=== PATIENT | female | born 2000 | race Caucasian/White ===

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

== ENCOUNTER 2021-03-30 09:40 | Inpatient (IN) | payer MEDICAID ==
[~2021-03-30] VITALS: Ht 157.5 cm; Wt 84.5 kg
[2021-03-30] VITALS (42 sets, daily range): BP systolic 125–195; BP diastolic 63–95; PULSE 54–107; TEMP 97.4–98.4
--- NOTE | 2021-03-30 10:00 | NUR ---
Presents to labor and delivery for induction of labor. Let patient know that we would monitor patientl, but not start induction until around noon time. Patient states understanding.
[2021-03-30 11:28] LABS: BASO # 0.1 K/mm3 (0.0-0.2); BASO % 0.5 % (0.0-2.0); EOS # 0.2 K/mm3 (0.0-0.7); EOS % 2.3 % (0-4.0); GRAN # 6.9 K/mm3 (1.4-6.5); HEMOGLOBIN 12.3 g/dl (12.5-16.0); LYMPH # 1.8 K/mm3 (1.2-3.4); LYMPH % 18.2 % (20.0-51.0); MEAN CELL VOLUME 90 fl (80.0-100.0); MEAN CORPUSCULAR HEMOGLOBIN 30 pg (27.0-31.0); MEAN CORPUSCULAR HGB CONC 34 g/dl (33.0-37.0); MEAN PLATELET VOLUME 10.2 fl (7.4-10.4); MONO # 0.7 K/mm3 (0.1-0.6); MONO % 7.2 % (1.7-9.3); PLATELET COUNT 167 K/mm3 (130-400); RED BLOOD COUNT 4.05 M/mm3 (4.10-5.30); REDCELL DISTRIBUTION WIDTH-CV 12.4 % (11.5-14.5)
[2021-03-30 11:30] LABS: HEMATOCRIT 36.3 % (37.0-47.0)
[2021-03-30 11:44] LABS: ALBUMIN 2.5 gm/dL (3.5-5.0); BILIRUBIN,TOTAL 0.4 mg/dL (0.2-1.2); CALCIUM 8.9 mg/dL (8.4-10.2); CREATININE, serum 0.62 mg/dL (0.57-1.11); POTASSIUM 3.2 mmol/L (3.5-4.5); TOTAL PROTEIN 6.1 gm/dL (6.2-8.1)
--- NOTE | 2021-03-30 14:04 | NUR ---
Pt sitting upright for epidural placement. Difficulty tracing FHR due to maternal position. RN at bedside adjusting monitors. FHR audible.
[2021-03-30 15:00] LABS: PH 7 (5-8); SQUAMOUS EPITHELIAL 0-2 /hpf; URINE APPEARANCE Clear; URINE BACTERIA None Seen /hpf; URINE BILIRUBIN Negative (NEGATIVE); URINE BLOOD Negative (NEGATIVE); URINE COLOR Straw; URINE GLUCOSE Negative (NEGATIVE); URINE KETONE 1+ (NEGATIVE); URINE LEUKOCYTE ESTERASE Negative (NEGATIVE); URINE NITRATE Negative (NEGATIVE); URINE PROTEIN(semi-quant) Negative (NEGATIVE); URINE RBC 0-2 /hpf; URINE UROBILINOGEN Negative (NEGATIVE); URINE WBC 0-2 /hpf
[2021-03-30 15:06] LABS: COLLECTION METHOD CLEAN CATCH
--- NOTE | 2021-03-30 19:29 | NUR ---
Pt reporting nausea and shaking with increased pressure during contractions. SVE unchanged at 7/100/0, but swelling noted to anterior cervix. Dr. Cameron called, orders for IV benadryl 25mg received.
--- NOTE | 2021-03-30 20:04 | NUR ---
Dr. Cameron notified of pt blood pressures of 173/93, 170/89, and 195/92, along with repeating variable decelerations with contractions. Orders received to give Hydralizine 10mg, and recheck cervix at 2014.
--- NOTE | 2021-03-30 21:40 | NUR ---
2057 - Dr. Cameron on unit, asked to come evaluated pt and swollen anterior lip of cervix. Dr. Cameron to pt bedside. 2099 - Dr. Cameron massaged cervix to thin and complete. Nursery RN called to bedside for delivery, pt repositioned with footplates for pushing. 2101 - Pt starts pushing with contraction 2103 - Viable male infand delivered spontaneously by Dr. Cameron. placed on mother's abdomen where dried and stimulated. Care of infant transferred to FLOR Luciano of nursery. Periurethral repair made by Dr. Cameron. 2110 - Placenta delivered by Dr. Cameron. Fundal massage provided. Pericare provided by Dr. Cameron. Ice pack and clean pad placed under pt, pt repositioned for comfort.
[2021-03-31 01:05] VITALS: BP 142/78; PULSE 53; TEMP 97.3
[2021-03-31 04:45] VITALS: BP 137/77; PULSE 63; TEMP 98.2
[2021-03-31] MEDS ORDERED: MOTRIN 800800 MG/TAB PO (08:14)
[2021-03-31 08:30] VITALS: BP 137/63; PULSE 75; TEMP 98.2
--- NOTE | 2021-03-31 10:15 | NUR ---
Initial visit; Parents thanked Client Relation Specialist for offering congratulations and God's blessings for the of their son. Client Relation Specialist thanked family for choosing [facility].
[2021-03-31 12:30] VITALS: BP 127/62; PULSE 57; TEMP 97.9
[2021-03-31 17:15] VITALS: BP 137/89; PULSE 90; TEMP 97.5
[2021-03-31 21:50] VITALS: BP 142/91; PULSE 77; TEMP 98.7
[2021-04-01 08:51] VITALS: BP 120/84; PULSE 79; TEMP 98.4
[2021-04-01] MEDS ORDERED: PERCOCET 325 MG1 TA2 PO (11:37)
[2021-04-01] MEDS ORDERED: BREASTPUMP MC (11:40)
== END 2021-04-01 12:10 | disposition home or self-care (01) | DRG 806 ==
LOC: LDRO 09:40 → OB 10:00 → LDR 10:00 → OB 03-31 00:06
PROVIDERS: ADMIT Obstetrics & Gynecology
PROC: 10E0XZZ Delivery of Products of Conception, External Approach (ICD-10-PCS; principal; 2021-03-30)
PROC: 0UQMXZZ Repair Vulva, External Approach (ICD-10-PCS; 2021-03-30)
PROC: 3E033VJ Introduction of Other Hormone into Peripheral Vein, Percutaneous Approach (ICD-10-PCS; 2021-03-30)
DX: O14.04 Mild to moderate pre-eclampsia, complicating childbirth (principal); O99.354 Diseases of the nervous system complicating childbirth; Z37.0 Single live birth; O99.214 Obesity complicating childbirth; O99.02 Anemia complicating childbirth; D64.9 Anemia, unspecified; G43.909 Migraine, unspecified, not intractable, without status migrainosus; O69.81X0 Labor and delivery complicated by cord around neck, without compression, not applicable or unspecified; O71.82 Other specified trauma to perineum and vulva; Z3A.39 39 weeks gestation of pregnancy
CPT/HCPCS: J0360; J1200; J2540; J2590; J2795; J7120